=== PATIENT | male | born 1970 | race American Indian/Alaskan Native ===

== ENCOUNTER 2018-04-22 20:24 | Emergency (ER) | payer MEDICAID ==
[2018-04-22 21:26] VITALS: BP 143/93
[2018-04-22 21:45] LABS: Basophils % (Auto) 0.3 % (0.0-1.8); Eosinophils % (Auto) 0.1 % (0.0-4.3); Hematocrit 43.6 % (35.5-45.6); Hemoglobin 14.5 gm/dl (11.8-15.2); Lymphocytes # (Auto) 2.3 K/mm3 (1.2-5.4); Lymphocytes % (Auto) 18.6 % (13.4-35.0); Mean Corpuscular HGB Conc 33 % (32-34); Mean Corpuscular Hemoglobin 27 pg (28-32); Mean Corpuscular Volume 80 fl (84-94); Monocytes # (Auto) 0.8 K/mm3 (0.0-0.8); Monocytes % (Auto) 6.1 % (0.0-7.3); Platelet Count 226 K/mm3 (140-440); Red Blood Count 5.44 M/mm3 (3.65-5.03); Red Cell Distribution Width 15.9 % (13.2-15.2)
[2018-04-22 22:12] LABS: BUN/Creatinine Ratio 19; Blood Urea Nitrogen 15 mg/dL (9-20); Calcium 9.9 mg/dL (8.4-10.2); Hemolysis Index 8
[2018-04-22 22:39] LABS: Benzodiazepines Screen,Urine PRESUMPTIVE NEGATIVE; Cannabinoid Screen,Urine PRESUMPTIVE NEGATIVE; Cocaine Screen,Urine PRESUMPTIVE NEGATIVE; Methadone Screen,Urine PRESUMPTIVE NEGATIVE; Opiate Screen,Urine PRESUMPTIVE NEGATIVE
[2018-04-22 22:45] LABS: Bilirubin,Urine NEG (Negative); Blood,Urine NEG (Negative); Color,Urine Amber (Yellow); Mucus,Urine 3+ /HPF
[2018-04-22 22:56] LABS: Amphetamine Screen,Urine PRESUMPTIVE NEGATIVE
--- NOTE | 2018-04-23 01:39 | Emergency Department Report ---
HPI - General Chief Complaint: Medical Clearance Time Seen by Provider: 04/22/18 21:34 - HPI HPI: 47-year-old after [place] male presents to the emergency department via EMS for a mental health evaluation. There was some description of hallucinations and paranoia that was seen through his triage notes. However the patient tells me that he is here for a medication refill. He thinks that he was previously on risperidone but says he has been out for "a minute" which I take to mean at least weeks or months, if not longer. Patient denies any suicidal or homicidal ideations. He denies any auditory or visual hallucinations. Patient is unable to tell me who called EMS and why. He is awake, alert and oriented to person, place and time. He denies any significant past medical history. He denies any current alcohol intoxication or any recent illicit drug use. He says he is a former smoker. The patient does allude to having some type of a previous psychiatric diagnosis but cannot tell me what it is. He denies having any primary care or psychiatric outpatient physician. ED Review of Systems ROS: Stated complaint: OUT OF MEDS Other details as noted in HPI Comment: All other systems reviewed and negative Constitutional: denies: chills, fever Eyes: denies: eye pain, eye discharge, vision change ENT: denies: ear pain, throat pain Respiratory: denies: cough, shortness of breath, wheezing Cardiovascular: denies: chest pain, palpitations Gastrointestinal: denies: abdominal pain, nausea, diarrhea Genitourinary: denies: urgency, dysuria Musculoskeletal: denies: back pain, joint swelling, arthralgia Skin: denies: rash, lesions Neurological: denies: headache, weakness, paresthesias Physical Exam - Physical Exam Vital Signs: Vital Signs 04/22/18 21:23 Temperature 99 F Pulse Rate 100 H Respiratory 16 Rate Blood Pressure 143/93 O2 Sat by Pulse 98 Oximetry Physical Exam: GENERAL: The patient is well-developed well-nourished. HEENT: Normocephalic. Atraumatic. Patient has moist mucous membranes. EYES: Extraocular motions are intact. Pupils are equal and reactive to light bilaterally. NECK: Supple. Trachea is midline. CHEST/LUNGS: Clear to auscultation. There is no respiratory distress noted. HEART/CARDIOVASCULAR: Regular. There is no tachycardia. There is no gallop rub or murmur. ABDOMEN: Abdomen is soft, nontender. Patient has normal bowel sounds. There is no abdominal distention. SKIN: Skin is warm and dry. NEURO: The patient is awake, alert, and oriented. The patient is cooperative. The patient has no focal neurologic deficits. The patient has normal speech. MUSCULOSKELETAL: There is no tenderness or deformity. There is no limitation range of motion. There is no evidence of acute injury. ED Course Vital Signs 04/22/18 21:23 Temperature 99 F Pulse Rate 100 H Respiratory 16 Rate Blood Pressure 143/93 O2 Sat by Pulse 98 Oximetry ED Medical Decision Making - Lab Data Result diagrams: 04/22/18 21:35 04/22/18 21:35 - Medical Decision Making Patient presents for what appeared to be a mental health evaluation. Despite the fact that he came by ambulance and the patient is unable to tell me who called and/or why, the patient is otherwise awake, alert, oriented and calm. The patient did mention something about restarting treatment or getting a medication refill but he says it has been a while since he has been on this medication and cannot give me his diagnosis. He denies any suicidal or homicidal ideations and he denies any current auditory or visual hallucinations. Patient was seen by the psych interface developer, Trey, who got the same story and assessment of the patient. The patient may have a little bit of disorganization but otherwise is awake and oriented, has a reasonable mental capacity, does not appear to be a danger to himself or others, and should be able to complete any ADLs necessary. For this reason the patient does not appear to be a current candidate to be made a 1013 or for inpatient involuntary admission. He will be given outpatient psychiatric referrals and instructed to return to the emergency Department with any worsening of his symptoms or any acute distress. - Differential Diagnosis schizophrenia, bipolar disorder, depression, substance abuse Critical Care Time: No Critical care attestation.: If time is entered above; I have spent that time in minutes in the direct care of this critically ill patient, excluding procedure time. ED Disposition Clinical Impression: Encounter for medication refill, History of psychiatric disorder Disposition: DC-01 TO HOME OR SELFCARE Is pt being admited?: No Condition: Stable Additional Instructions: I am giving you a referral to the [facility] on [address] in case you would like to follow up regarding your previous history of being on some type of psychiatric medication. I will also give you a referral for some local primary care clinics. Please return to the emergency department with any thoughts of harming herself or others, any psychiatric complaints, or with any acute distress. Referrals: PRIMARY CARE, [Primary Care Provider] - 2-3 Days [facility] [Outside] - 2-3 Days [facility] [Outside] - 2-3 Days [facility] [Outside] - 2-3 Days Time of Disposition: 01:40
== END 2018-04-23 02:56 | disposition home or self-care (01) ==
LOC: ED 20:24
DX: F99 Mental disorder, not otherwise specified (principal); Z76.0 Encounter for issue of repeat prescription; F22 Delusional disorders; Z88.1 Allergy status to other antibiotic agents
CPT/HCPCS: 36415; 80048; 80307; 81001; 85025; 99284; G0480; 80320